=== PATIENT | female | born 1945 | race African-American/Black ===

== ENCOUNTER → 2019-04-10 | Outpatient (CLI) | payer MEDICARE | LOC: ZCOL.LAB 20:19 → ZLAB.STJ 20:19 | DX: E55.9 Vitamin D deficiency, unspecified (principal) ==

== ENCOUNTER → 2019-09-05 | Outpatient (CLI) | payer MEDICARE ==
[2019-09-05 17:45] LABS: MUCOUS Present /lpf; PH 6 (5-8); SQUAMOUS EPITHELIAL 0-2 /hpf; URINE APPEARANCE Hazy; URINE BACTERIA Rare /hpf; URINE BILIRUBIN Negative (NEGATIVE); URINE BLOOD 2+ (NEGATIVE); URINE COLOR Straw; URINE GLUCOSE Negative (NEGATIVE); URINE KETONE Negative (NEGATIVE); URINE LEUKOCYTE ESTERASE Negative (NEGATIVE); URINE NITRATE Negative (NEGATIVE); URINE PROTEIN(semi-quant) Negative (NEGATIVE); URINE UROBILINOGEN Negative (NEGATIVE)
[2019-09-05 18:13] LABS: COLLECTION METHOD CLEAN CATCH
== END ==
LOC: ZCOL.LAB 17:09
PROVIDERS: Family Medicine
DX: N39.0 Urinary tract infection, site not specified (principal)

== ENCOUNTER → 2019-09-09 | Outpatient (CLI) | payer MEDICARE, MEDICAID ==
[2019-09-09 15:53] LABS: CALCIUM 9.6 mg/dL (8.4-10.2); CREATININE, serum 1.15 (0.52-1.25); POTASSIUM 4.1 mmol/L (3.4-5.0)
[2019-09-09 16:01] LABS: BASO % 0.2 % (0.0-2.0); GRAN # 11.2 (1.4-6.5); GRAN % 82.8 % (42.2-75.2); HEMOGLOBIN 11.1 g/dl (12.5-16.0); LYMPH # 1.6 (1.2-3.4); LYMPH % 11.8 % (20.0-51.0); MEAN CELL VOLUME 89 fl (80.0-100.0); MEAN CORPUSCULAR HEMOGLOBIN 29 pg (27.0-31.0); MEAN CORPUSCULAR HGB CONC 33 g/dl (33.0-37.0); MEAN PLATELET VOLUME 12.8 fl (7.4-10.4); MONO # 0.6 (0.1-0.6); MONO % 4.5 % (1.7-9.3); PLATELET COUNT 212 K/mm3 (130-400); RED BLOOD COUNT 3.82 M/mm3 (4.10-5.30); REDCELL DISTRIBUTION WIDTH-CV 14.6 % (11.5-14.5)
[2019-09-09 16:04] LABS: HEMATOCRIT 34.1 % (37.0-47.0)
== END ==
LOC: ZLAB.STJ 15:06
PROVIDERS: Family Medicine
DX: R35.0 Frequency of micturition (principal)

== ENCOUNTER → 2019-09-15 | Outpatient (CLI) | payer MEDICARE, MEDICAID ==
[2019-09-15 16:32] LABS: BASO % 0.4 % (0.0-2.0); EOS # 0.1 (0.0-0.7); EOS % 0.8 % (0-4.0); GRAN # 5.9 (1.4-6.5); GRAN % 70.2 % (42.2-75.2); HEMATOCRIT 34.5 % (37.0-47.0); HEMOGLOBIN 11.1 g/dl (12.5-16.0); LYMPH # 1.8 (1.2-3.4); MEAN CELL VOLUME 90 fl (80.0-100.0); MEAN CORPUSCULAR HEMOGLOBIN 29 pg (27.0-31.0); MEAN CORPUSCULAR HGB CONC 32 g/dl (33.0-37.0); MEAN PLATELET VOLUME 12.6 fl (7.4-10.4); MONO # 0.5 (0.1-0.6); MONO % 6.1 % (1.7-9.3); PLATELET COUNT 190 K/mm3 (130-400); RED BLOOD COUNT 3.85 M/mm3 (4.10-5.30); REDCELL DISTRIBUTION WIDTH-CV 14.6 % (11.5-14.5)
== END ==
LOC: ZLAB.STJ 16:04
PROVIDERS: Family Medicine
DX: R68.89 Other general symptoms and signs (principal)

== ENCOUNTER → 2020-02-27 | Outpatient (CLI) | payer MEDICARE, MEDICAID ==
[2020-02-27 16:41] LABS: CALCIUM 9.1 mg/dL (8.4-10.2); CREATININE, serum 1.29 (0.52-1.25); POTASSIUM 3.5 mmol/L (3.4-5.0)
== END ==
LOC: ZLAB.STJ 16:13
PROVIDERS: Family Medicine
DX: R79.89 Other specified abnormal findings of blood chemistry (principal)

== ENCOUNTER → 2020-05-18 | Outpatient (CLI) | payer OTHER, MEDICAID ==
[2020-05-18 17:44] LABS: COLLECTION METHOD CLEAN CATCH
[2020-05-18 18:13] LABS: PH 6 (5-8); SQUAMOUS EPITHELIAL 0-2 /hpf; URINE APPEARANCE Clear; URINE BACTERIA Rare /hpf; URINE BILIRUBIN Negative (NEGATIVE); URINE BLOOD Negative (NEGATIVE); URINE COLOR Yellow; URINE GLUCOSE Negative (NEGATIVE); URINE KETONE Negative (NEGATIVE); URINE LEUKOCYTE ESTERASE Negative (NEGATIVE); URINE NITRATE Negative (NEGATIVE); URINE PROTEIN(semi-quant) Negative (NEGATIVE); URINE RBC 0-2 /hpf; URINE WBC 0-2 /hpf
== END ==
LOC: ZLAB.STJ 17:22
PROVIDERS: Family Medicine
DX: Z01.89 Encounter for other specified special examinations (principal)

== ENCOUNTER → 2020-07-19 | Outpatient (CLI) | payer MEDICARE, MEDICAID ==
[2020-07-19 19:50] LABS: PH 6 (5-8); SQUAMOUS EPITHELIAL None Seen /hpf; URINE APPEARANCE Clear; URINE BACTERIA Rare /hpf; URINE BILIRUBIN Negative (NEGATIVE); URINE BLOOD Negative (NEGATIVE); URINE COLOR Straw; URINE GLUCOSE 3+ (NEGATIVE); URINE KETONE Negative (NEGATIVE); URINE LEUKOCYTE ESTERASE Negative (NEGATIVE); URINE NITRATE Negative (NEGATIVE); URINE PROTEIN(semi-quant) Negative (NEGATIVE); URINE RBC 0-2 /hpf; URINE UROBILINOGEN Negative (NEGATIVE); URINE WBC 0-2 /hpf
[2020-07-19 22:21] LABS: COLLECTION METHOD CLEAN CATCH
== END ==
LOC: ZLAB.STJ 17:37
PROVIDERS: Family Medicine
DX: N39.0 Urinary tract infection, site not specified (principal)

== ENCOUNTER → 2020-11-16 | Outpatient (CLI) | payer MEDICARE, MEDICAID ==
[2020-11-16 20:47] LABS: MUCOUS Present /lpf; PH 5 (5-8); SQUAMOUS EPITHELIAL 0-2 /hpf; URINE APPEARANCE Clear; URINE BACTERIA Rare /hpf; URINE BILIRUBIN Negative (NEGATIVE); URINE BLOOD Negative (NEGATIVE); URINE COLOR Yellow; URINE GLUCOSE Negative (NEGATIVE); URINE KETONE Negative (NEGATIVE); URINE LEUKOCYTE ESTERASE Negative (NEGATIVE); URINE NITRATE Negative (NEGATIVE); URINE PROTEIN(semi-quant) Negative (NEGATIVE); URINE RBC 0-2 /hpf; URINE UROBILINOGEN Negative (NEGATIVE)
[2020-11-16 20:56] LABS: COLLECTION METHOD CLEAN CATCH
== END ==
LOC: ZLAB.STJ 17:21
PROVIDERS: Family Medicine
DX: R30.9 Painful micturition, unspecified (principal); R33.9 Retention of urine, unspecified

== ENCOUNTER → 2020-12-10 | Outpatient (CLI) | payer MEDICARE, MEDICAID | LOC: ZLAB.STJ 16:50 | DX: R22.42 Localized swelling, mass and lump, left lower limb (principal) ==

== ENCOUNTER → 2021-01-11 | Outpatient (CLI) | payer MEDICARE, MEDICAID ==
[2021-01-11 19:30] LABS: BASO % 0.2 % (0.0-2.0); EOS % 0.3 % (0-4.0); GRAN # 6.6 K/mm3 (1.4-6.5); GRAN % 75.5 % (42.2-75.2); HEMATOCRIT 37.5 % (37.0-47.0); LYMPH # 1.7 K/mm3 (1.2-3.4); LYMPH % 19.2 % (20.0-51.0); MEAN CELL VOLUME 89 fl (80.0-100.0); MEAN CORPUSCULAR HEMOGLOBIN 29 pg (27.0-31.0); MEAN CORPUSCULAR HGB CONC 32 g/dl (33.0-37.0); MEAN PLATELET VOLUME 12.3 fl (7.4-10.4); MONO # 0.4 K/mm3 (0.1-0.6); MONO % 4.3 % (1.7-9.3); PLATELET COUNT 257 K/mm3 (130-400); REDCELL DISTRIBUTION WIDTH-CV 13.5 % (11.5-14.5)
[2021-01-11 19:42] LABS: ALBUMIN 3.9 gm/dL (3.4-4.8); BILIRUBIN,TOTAL 0.5 mg/dL (0.2-1.2); CALCIUM 9.8 mg/dL (8.4-10.2); CREATININE, serum 1.34 mg/dL (0.57-1.11); POTASSIUM 4.4 mmol/L (3.5-4.5); TOTAL PROTEIN 8.5 gm/dL (6.2-8.1)
[2021-01-11 19:56] LABS: BILIRUBIN,DIRECT 0.1 mg/dL (0.0-0.5)
== END ==
LOC: ZLAB.STJ 19:16
PROVIDERS: Nurse Practitioner Family
DX: D64.9 Anemia, unspecified (principal); R14.0 Abdominal distension (gaseous)

== ENCOUNTER → 2021-01-17 | Outpatient (CLI) | payer MEDICARE, MEDICAID ==
[~2021-01-17] MED LIST: DULCOLAX STOOL100 MG PO
[2021-01-17 16:23] LABS: URIC ACID 9.2 mg/dL (2.6-6.0)
== END ==
LOC: ZLAB.STJ 15:56
PROVIDERS: Family Medicine
DX: M10.9 Gout, unspecified (principal); M10.00 Idiopathic gout, unspecified site

== ENCOUNTER → 2021-01-18 | Outpatient (CLI) | payer MEDICARE, MEDICAID | LOC: COL.RAD 11:36 | DX: R10.9 Unspecified abdominal pain (principal) ==

== ENCOUNTER 2021-01-19 17:30 | Emergency (ER) | payer MEDICARE, MEDICAID ==
[~2021-01-19] VITALS: Ht 172.7 cm; Wt 90.9 kg
[2021-01-19 17:44] VITALS: TEMP 98
[2021-01-19 19:48] LABS: BASO % 0.4 % (0.0-2.0); EOS # 0.1 K/mm3 (0.0-0.7); EOS % 0.6 % (0-4.0); GRAN # 5.3 K/mm3 (1.4-6.5); HEMATOCRIT 36.1 % (37.0-47.0); HEMOGLOBIN 11.6 g/dl (12.5-16.0); LYMPH # 2.5 K/mm3 (1.2-3.4); LYMPH % 29.8 % (20.0-51.0); MEAN CELL VOLUME 90 fl (80.0-100.0); MEAN CORPUSCULAR HEMOGLOBIN 29 pg (27.0-31.0); MEAN CORPUSCULAR HGB CONC 32 g/dl (33.0-37.0); MEAN PLATELET VOLUME 11.6 fl (7.4-10.4); MONO # 0.5 K/mm3 (0.1-0.6); MONO % 5.6 % (1.7-9.3); PLATELET COUNT 256 K/mm3 (130-400); RED BLOOD COUNT 4.03 M/mm3 (4.10-5.30); REDCELL DISTRIBUTION WIDTH-CV 13.6 % (11.5-14.5)
[2021-01-19 20:05] LABS: ALBUMIN 3.8 gm/dL (3.4-4.8); BILIRUBIN,TOTAL 0.3 mg/dL (0.2-1.2); C-REACTIVE PROTEIN 2.47 mg/dL (0.00-0.50); CALCIUM 9.7 mg/dL (8.4-10.2); CREATININE, serum 1.48 mg/dL (0.57-1.11); POTASSIUM 3.8 mmol/L (3.5-4.5)
[2021-01-20 00:09] LABS: COLLECTION METHOD CLEAN CATCH
[2021-01-20 00:15] LABS: PH 5 (5-8); SQUAMOUS EPITHELIAL None Seen /hpf (0-10); URINE APPEARANCE Clear (CLEAR/HAZY); URINE BACTERIA None Seen (NONE SEEN); URINE BILIRUBIN Negative (NEGATIVE); URINE BLOOD Negative (NEGATIVE); URINE COLOR Yellow (YELLOW); URINE GLUCOSE Negative (NEGATIVE); URINE KETONE Negative (NEGATIVE); URINE LEUKOCYTE ESTERASE Negative (NEGATIVE); URINE NITRATE Negative (NEGATIVE); URINE PROTEIN(semi-quant) Negative (NEGATIVE); URINE RBC 0-2 /hpf (0-2); URINE UROBILINOGEN Negative (NEGATIVE)
[2021-01-20] MEDS ORDERED: DULCOLAX STOOL100 MG PO (00:25)
[2021-01-20 01:40] VITALS: BP 128/75; PULSE 86
== END 2021-01-20 01:40 ==
LOC: COL.ER 17:30
PROVIDERS: Nurse Practitioner Primary Care
DX: K59.00 Constipation, unspecified (principal); I10 Essential (primary) hypertension
CPT/HCPCS: Q9967

== ENCOUNTER → 2021-02-10 | Outpatient (CLI) | payer MEDICARE, MEDICAID | LOC: ZLAB.STJ 16:20 | DX: M10.9 Gout, unspecified (principal) ==

== ENCOUNTER → 2021-02-15 | Outpatient (CLI) | payer MEDICARE, MEDICAID | LOC: ZLAB.STJ 14:00 | DX: M10.9 Gout, unspecified (principal) ==

== ENCOUNTER → 2021-03-25 | Outpatient (CLI) | payer MEDICARE, MEDICAID ==
[2021-03-25 15:24] LABS: COLLECTION METHOD CATHETER
[2021-03-25 15:45] LABS: BASO % 0.5 % (0.0-2.0); EOS # 0.1 K/mm3 (0.0-0.7); EOS % 0.7 % (0.0-4.0); GRAN % 67.8 % (42.2-75.2); HEMOGLOBIN 10.2 g/dl (12.5-16.0); LYMPH # 1.8 K/mm3 (1.2-3.4); LYMPH % 24.8 % (20.0-51.0); MEAN CELL VOLUME 88 fl (80.0-100.0); MEAN CORPUSCULAR HEMOGLOBIN 28 pg (27-31); MEAN CORPUSCULAR HGB CONC 32 g/dl (33.0-37.0); MEAN PLATELET VOLUME 12.2 fl (7.4-10.4); MONO # 0.4 K/mm3 (0.1-0.6); MONO % 5.8 % (1.7-9.3); PLATELET COUNT 202 K/mm3 (130-400); RED BLOOD COUNT 3.62 M/mm3 (4.10-5.30)
[2021-03-25 15:50] LABS: ALBUMIN 3.3 gm/dL (3.4-4.8); BILIRUBIN,TOTAL 0.3 mg/dL (0.2-1.2); CREATININE, serum 1.3 mg/dL (0.57-1.11); THYROID STIMULATING HORMONE 0.793 uIU/mL (0.350-4.940); TOTAL PROTEIN 6.7 gm/dL (6.2-8.1); URIC ACID 5.5 mg/dL (2.6-6.0)
[2021-03-25 15:51] LABS: MUCOUS Present (NOT PRESENT); PH 5 (5-8); SQUAMOUS EPITHELIAL 0-2 /hpf (0-10); URINE APPEARANCE Clear (CLEAR/HAZY); URINE BACTERIA Rare /hpf (NONE SEEN); URINE BILIRUBIN Negative (NEGATIVE); URINE BLOOD Negative (NEGATIVE); URINE COLOR Yellow (YELLOW); URINE GLUCOSE Negative (NEGATIVE); URINE KETONE Negative (NEGATIVE); URINE LEUKOCYTE ESTERASE Negative (NEGATIVE); URINE NITRATE Negative (NEGATIVE); URINE PROTEIN(semi-quant) Negative (NEGATIVE); URINE RBC 0-2 /hpf (0-2); URINE UROBILINOGEN Negative (NEGATIVE)
[2021-03-25 17:14] LABS: CHOLESTEROL RISK RATIO 6.3
== END ==
LOC: ZLAB.STJ 14:35
PROVIDERS: Internal Medicine
DX: D64.9 Anemia, unspecified (principal); E78.5 Hyperlipidemia, unspecified; E11.9 Type 2 diabetes mellitus without complications; I10 Essential (primary) hypertension; E55.9 Vitamin D deficiency, unspecified; K21.9 Gastro-esophageal reflux disease without esophagitis; M10.9 Gout, unspecified; R41.0 Disorientation, unspecified

== ENCOUNTER → 2021-04-06 | Outpatient (CLI) | payer MEDICARE, MEDICAID | LOC: ZLAB.STJ 17:55 | PROVIDERS: Internal Medicine | DX: E61.1 Iron deficiency (principal); M10.9 Gout, unspecified ==

== ENCOUNTER 2021-05-06 09:21 | Day surgery (SDC) | payer MEDICARE, MEDICAID ==
[~2021-05-06] VITALS: Ht 170.2 cm; Wt 106.8 kg
[2021-05-06 10:15] VITALS: BP 162/78; PULSE 81; TEMP 98.2
[2021-05-06] MEDS ORDERED: HCTZ 25MG TAB25 MG PO (10:43)
[2021-05-06] MEDS ORDERED: BIOFREEZE 0.2%-1 GE1 TOP (10:43)
[2021-05-06] MEDS ORDERED: ASPIRIN 81M81 MG/TA2 PO (10:44)
[2021-05-06] MEDS ORDERED: NORCO 325 MG-51 TAB PO (10:44)
[2021-05-06] MEDS ORDERED: MIRALAX PA17 GM/Dose PO ×2 (10:45→10:53)
[2021-05-06] MEDS ORDERED: LIPITOR 40MG TA40 MG PO (10:45)
[2021-05-06] MEDS ORDERED: NEURONTIN300 MG/CAP PO (10:46)
[2021-05-06] MEDS ORDERED: PLAVIX 75MG TAB75 MG PO (10:46)
[2021-05-06] MEDS ORDERED: NITROSTAT0.4 MG/TAB SL (10:47)
[2021-05-06] MEDS ORDERED: PRINIVIL2.5 MG PO (10:47)
[2021-05-06] MEDS ORDERED: PROTONIX 40MG T40 MG PO (10:47)
[2021-05-06] MEDS ORDERED: ARTIFICIAL TEAR15 M7 OP (10:49)
[2021-05-06] MEDS ORDERED: MAALOX ADVANCE148 ML PO (10:49)
[2021-05-06] MEDS ORDERED: B-121000 MCG PO (10:50)
[2021-05-06] MEDS ORDERED: MASON NATURAL2000 IU PO (10:50)
[2021-05-06] MEDS ORDERED: METAMUCIL3.4 GM/DOS PO (10:51)
[2021-05-06] MEDS ORDERED: TYLENOL 325MG325 MG PO (10:51)
[2021-05-06] MEDS ORDERED: PREPH RC (10:51)
[2021-05-06] MEDS ORDERED: ANUSOL-HC SUPPO25 MG RC (10:52)
[2021-05-06] MEDS ORDERED: SUPER GREENS PO (10:54)
[2021-05-06] MEDS ORDERED: VOLTAREN GEL 1%1 TU TP ×2 (10:54→10:55)
[2021-05-06] MEDS ORDERED: IBU600 MG PO (10:55)
[2021-05-06] MEDS ORDERED: MUCUS-CHES100 MG/5 M PO (10:56)
[2021-05-06] MEDS ORDERED: ZYLOPRIM 300MG300 MG PO (10:56)
[2021-05-06] MEDS ORDERED: KLONOPIN 0.5MG0.5 MG PO (10:57)
[2021-05-06] MEDS ORDERED: TYLENOL 500MG500 MG PO (10:58)
[2021-05-06] MEDS ORDERED: MELATIN 3 MG-11 TAB PO (10:58)
[2021-05-06] MEDS ORDERED: JANUVIA50 MG PO (10:59)
[2021-05-06] MEDS ORDERED: CYMBALTA 30MG30 MG PO (10:59)
[2021-05-06 11:33] VITALS: BP 164/75; PULSE 81; TEMP 97.7
--- NOTE | 2021-05-06 11:33 | NUR ---
Pt arrived from endo suite on cart. Vitals obtained. Pt has released soft stool all over the sheets and bed pads. FRIDA Lopez and FRIDA Matthews changed the sheets, cleaned the pt and applied new bed pads. Apple juice provided. Per report: no foods, clear liquids only. Call ellis is on her right side within reach, next to her hand.
[2021-05-06 11:48] VITALS: BP 174/89; PULSE 84
--- NOTE | 2021-05-06 11:48 | NUR ---
Pt continues to release soft stool. Pt cleaned again, by FRIDA Lopez. Vitals obtained. More apple juice provided. [facility] contacted.
[2021-05-06 12:03] VITALS: BP 178/98; PULSE 79
--- NOTE | 2021-05-06 12:03 | NUR ---
Vitals obtained. Pt remains clean.
--- NOTE | 2021-05-06 12:15 | NUR ---
DC instructions and educational material was reviewed with the pt, who verbalized understanding and signed the realted paperwork. Patient verbalized understanding a clear liquid diet as directed. IV was discontinued. Catheter tip intact. Pressure bandage applied. No redness or swelling noted. Pt was then assisted on a bedpan to void. Pt was cleaned after. Depends applied. Pt was fully assisted into her personal clothes. Pt did not want to wear her shoes. Clean bed pad was applied to her chair. Ky, from [facility] lifted the pt from bed and transferred her into wheelchair. Pt has her personal belongings and DC packet in a white bag, given to Ky. Pt was dismissed from [facility] via wheelchair to the patient entrence and transferred into the care of [facility].
[2021-05-06 14:36] VITALS: BP 164/75; PULSE 81
== END 2021-05-06 12:40 | disposition home or self-care (01) ==
LOC: SDCO 09:21
DX: K29.50 Unspecified chronic gastritis without bleeding (principal); K22.4 Dyskinesia of esophagus; K59.00 Constipation, unspecified; Z79.899 Other long term (current) drug therapy
CPT/HCPCS: J2370; J2704; J7030

== ENCOUNTER → 2021-06-01 | Outpatient (CLI) | payer MEDICARE, MEDICAID ==
[~2021-06-01] MED LIST changes: +ANUSOL-HC SUPPO25 MG RC; +ARTIFICIAL TEAR15 M7 OP; +ASPIRIN 81M81 MG/TA2 PO; +B-121000 MCG PO; +BIOFREEZE 0.2%-1 GE1 TOP; +CYMBALTA 30MG30 MG PO; +HCTZ 25MG TAB25 MG PO; +IBU600 MG PO; +JANUVIA50 MG PO; +KLONOPIN 0.5MG0.5 MG PO; +LIPITOR 40MG TA40 MG PO; +MAALOX ADVANCE148 ML PO; +MASON NATURAL2000 IU PO; +MELATIN 3 MG-11 TAB PO; +METAMUCIL3.4 GM/DOS PO; +MIRALAX PA17 GM/Dose PO; +MUCUS-CHES100 MG/5 M PO; +NEURONTIN300 MG/CAP PO; +NITROSTAT0.4 MG/TAB SL; +NORCO 325 MG-51 TAB PO; +PLAVIX 75MG TAB75 MG PO; +PREPH RC; +PRINIVIL2.5 MG PO; +PROTONIX 40MG T40 MG PO; +SUPER GREENS PO; +TYLENOL 325MG325 MG PO; +TYLENOL 500MG500 MG PO; +VOLTAREN GEL 1%1 TU TP; +ZYLOPRIM 300MG300 MG PO
[2021-06-01 16:23] LABS: BASO % 0.2 % (0.0-2.0); EOS # 0.1 K/mm3 (0.0-0.7); EOS % 1.3 % (0.0-4.0); GRAN % 73.6 % (42.2-75.2); HEMOGLOBIN 11.3 g/dl (12.5-16.0); LYMPH # 1.9 K/mm3 (1.2-3.4); LYMPH % 19.4 % (20.0-51.0); MEAN CELL VOLUME 88 fl (80.0-100.0); MEAN CORPUSCULAR HEMOGLOBIN 28 pg (27-31); MEAN CORPUSCULAR HGB CONC 32 g/dl (33.0-37.0); MEAN PLATELET VOLUME 12.8 fl (7.4-10.4); MONO # 0.5 K/mm3 (0.1-0.6); MONO % 5.1 % (1.7-9.3); PLATELET COUNT 251 K/mm3 (130-400); RED BLOOD COUNT 4.09 M/mm3 (4.10-5.30); REDCELL DISTRIBUTION WIDTH-CV 14.9 % (11.5-14.5)
[2021-06-01 16:28] LABS: HEMATOCRIT 35.8 % (37.0-47.0)
[2021-06-01 16:38] LABS: ALBUMIN 3.7 gm/dL (3.4-4.8); BILIRUBIN,TOTAL 0.4 mg/dL (0.2-1.2); CALCIUM 9.5 mg/dL (8.4-10.2); CREATININE, serum 1.3 mg/dL (0.57-1.11); POTASSIUM 4.3 mmol/L (3.5-4.5); TOTAL PROTEIN 7.3 gm/dL (6.2-8.1)
[2021-06-01 16:56] LABS: THYROID STIMULATING HORMONE 0.643 uIU/mL (0.350-4.940)
== END ==
LOC: ZLAB.STJ 16:11
PROVIDERS: Internal Medicine
DX: E03.9 Hypothyroidism, unspecified (principal); I10 Essential (primary) hypertension

== ENCOUNTER → 2021-07-01 | Outpatient (CLI) | payer MEDICARE, MEDICAID | LOC: ZCOL.LAB 10:26 | DX: R73.09 Other abnormal glucose (principal) ==

== ENCOUNTER → 2021-07-01 | Outpatient (CLI) | payer MEDICARE, MEDICAID | LOC: COL.RAD 10:05 | DX: R14.0 Abdominal distension (gaseous) (principal) ==

== ENCOUNTER → 2021-08-17 | Outpatient (CLI) | payer MEDICARE, MEDICAID ==
[2021-08-17 12:37] LABS: BILIRUBIN,TOTAL 0.2 mg/dL (0.2-1.2); CALCIUM 9.9 mg/dL (8.4-10.2); CREATININE, serum 1.82 mg/dL (0.57-1.11); POTASSIUM 4.4 mmol/L (3.5-4.5); TOTAL PROTEIN 8.2 gm/dL (6.2-8.1)
[2021-08-17 12:39] LABS: BASO % 0.5 % (0.0-2.0); EOS # 0.1 K/mm3 (0.0-0.7); EOS % 0.8 % (0.0-4.0); GRAN # 5.6 K/mm3 (1.4-6.5); GRAN % 70.7 % (42.2-75.2); HEMOGLOBIN 11.8 g/dl (12.5-16.0); LYMPH # 1.8 K/mm3 (1.2-3.4); LYMPH % 22.6 % (20.0-51.0); MEAN CELL VOLUME 89 fl (80.0-100.0); MEAN CORPUSCULAR HEMOGLOBIN 29 pg (27-31); MEAN CORPUSCULAR HGB CONC 32 g/dl (33.0-37.0); MEAN PLATELET VOLUME 12.3 fl (7.4-10.4); MONO # 0.4 K/mm3 (0.1-0.6); MONO % 4.9 % (1.7-9.3); PLATELET COUNT 221 K/mm3 (130-400); RED BLOOD COUNT 4.13 M/mm3 (4.10-5.30); REDCELL DISTRIBUTION WIDTH-CV 14.6 % (11.5-14.5)
[2021-08-17 12:42] LABS: HEMATOCRIT 36.6 % (37.0-47.0)
[2021-08-17 13:05] LABS: THYROID STIMULATING HORMONE 1.892 uIU/mL (0.350-4.940)
[2021-08-17 13:41] LABS: PH 5 (5-8); URINE APPEARANCE Hazy (CLEAR/HAZY); URINE COLOR Yellow (YELLOW); URINE PROTEIN(semi-quant) Negative (NEGATIVE)
[2021-08-17 13:42] LABS: URINE BILIRUBIN Negative (NEGATIVE); URINE BLOOD Negative (NEGATIVE); URINE GLUCOSE Negative (NEGATIVE); URINE KETONE Negative (NEGATIVE); URINE LEUKOCYTE ESTERASE Negative (NEGATIVE); URINE NITRATE Negative (NEGATIVE); URINE UROBILINOGEN Negative (NEGATIVE)
[2021-08-17 13:45] LABS: URINE RBC 0-2 /hpf (0-2)
[2021-08-17 13:46] LABS: SQUAMOUS EPITHELIAL 0-2 /hpf (0-10); URINE BACTERIA Rare /hpf (NONE SEEN)
[2021-08-18 11:24] LABS: COLLECTION METHOD CLEAN CATCH
== END ==
LOC: ZLAB.STJ 11:39
PROVIDERS: Internal Medicine
DX: I10 Essential (primary) hypertension (principal); R53.83 Other fatigue; R10.9 Unspecified abdominal pain; R45.1 Restlessness and agitation

== ENCOUNTER → 2021-09-20 | Outpatient (CLI) | payer MEDICARE, MEDICAID | LOC: COL.RAD 11:59 | DX: M25.572 Pain in left ankle and joints of left foot (principal) ==

== ENCOUNTER → 2021-10-07 | Outpatient (CLI) | payer MEDICARE, MEDICAID ==
[2021-10-07 11:18] LABS: COLLECTION METHOD CATHETER
[2021-10-07 11:30] LABS: PH 5.5 (5.0-8.5); URINE APPEARANCE Clear (CLEAR/HAZY); URINE BLOOD Negative (NEGATIVE); URINE COLOR Yellow (YELLOW); URINE GLUCOSE Negative (NEGATIVE); URINE KETONE Negative (NEGATIVE); URINE NITRATE Negative (NEGATIVE); URINE PROTEIN(semi-quant) Negative (NEGATIVE); URINE UROBILINOGEN 0.2 E.U/dL (0.2-1.0)
[2021-10-07 11:43] LABS: URINE RBC 0-2 /hpf (0-2)
[2021-10-07 11:44] LABS: MUCOUS Present (NOT PRESENT); SQUAMOUS EPITHELIAL 0-2 /hpf (0-10); URINE BACTERIA None Seen /hpf (NONE SEEN)
== END ==
LOC: ZLAB.STJ 10:54
PROVIDERS: Internal Medicine
DX: N39.0 Urinary tract infection, site not specified (principal)